=== PATIENT | female | born 1970 | race Caucasian/White ===

== ENCOUNTER 2017-01-15 12:00 | Outpatient (RCR) | payer OTHER, SELFPAY ==
--- NOTE | 2016-12-29 16:04 | HP.PTEVAL_ITS ---
Patient's Visit Information GORDO ABERNATHY is a 46 year old F referred to Physical Therapy by Devonte Nava with a diagnosis of LUMBAGO. Date of Evaluation: 12/29/16 Physical Therapist: Gabe Vizcaino PT, - Visit Plan Frequency: 2x /Week Duration: 4 Weeks Plan: DLS,LE FLEXABILITY,LE STRENGTHENING,MODALITIES NEEDED. PATIENT MULTIPLE COMORMIDITIES - Subjective Subjective: This 46 y/o female presents to physical therapy with lumbago .Patient has had lumbar pain several years. Patient has multiple comormidities blood clots in legs whic had surgery one. year ago. 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 Patient has been off work for about year for medically leave.Patient has had CVA x3 and multple TIA. Patient has nerve disease -freedman-freedman.Patient was recently hospitalized for suicide attempt per patient.Symmtrical -L-S region. Symptoms worse with lifting ,bending,housework tasks. Symptpoms better with rest. Patient sleeping okay at night.Couighing /sneezing (-). Denies parathesia/ tingling. VOCATION: [employer]. SOCIAL: - Pain Bilateral Back Pain Intensity (Out of 10): 0 Pain Intensity Range: 10 - Objective POSTURE: mild foward posture. PALPATION: unremarkable. NEURO: denies parathesia/tingling ,reflexes L3-4,L4-5,L5-S1 1/3. GAIT: normal mago reciprocal pattern..wears foot prothesis. FLEXABILITY: hams mod/severe tight, piriformis mod tight. SYMMTRIES: align. LUMBAR ROM: flexion mod loss, extension mod loss,side glides mod loss. MMT: quads/hams/hip 4-/5,ankle 4-/5 - Special Tests L/S Slump test left side: Negative L/S Slump test right side: Negative L/S Left Straight Leg Raise: Negative L/S Right Straight Leg Raise: Negative Lumbar Standing: Flexion - Mechanical Response: No effect Lumbar Standing: Flexion - Symptoms During Testing: No effect Lumbar Standing: Flexion - Symptoms After Testing: No effect Lumbar Standing: Extension - Mechanical Response: No effect Lumbar Standing: Extension - Symptoms During Testing: No effect - Goals Goal 1:: Independant with HEP. Goal Time Frame: 4-6 Weeks Goal 2:: Independant with posture/body mechanics. Goal Time Frame: 4-6 Weeks Goal 3:: Decrease lumbar pain by 50% or greater to improve function and job demands. Goal Time Frame: 4-6 Weeks Goal 4:: Patient increase lumbar ROM min/mod limited for function of recovery Goal Time Frame: 4-6 Weeks Goal 5:: Patient increase strength 4/5 for LE to improve function with job demands. Goal Time Frame: 4-6 Weeks Goal 6:: Patient improve ability improve ADL'S and job demands with min limiations with good endurance. Goal Time Frame: 4-6 Weeks - Rehabilitation Potential Physical Therapy Diagnosis: This patient has multiple comormidities to include CVA'S/TIA'S, DVT along with lumbar pain ,weakness,poor lumbar ROM, deconditioned for ADL'S and housework Rehabilitation Potential: Good - Anticipated Interventions Patient/Client Instruction: Educate patient on: Condition, Plan of Care For the Purpose of:: To decrease pain, To increase ROM, To improve muscle performance and motor function, To improve ability to perform ADL's, To increase tolerance to activity/condition/position, To improve performance and independence with ADL's, To improve ability of physical actions for home/ community/work/leisure, To improve health of tissue, To decrease soft tissue restriction, To increase flexibility/ROM, To improve endurance, To improve health and function, To improve ability to perform tasks related to life management Therapeutic Exercise to Include: Strength training, Agility training, Postural training, Flexibilty training, Dynamic Lumbar Stabilization For the Purpose of:: To decrease pain, To increase ROM, To improve muscle performance and motor function, To improve ability to perform ADL's, To increase tolerance to activity/condition/position, To improve performance and independence with ADL's, To improve ability of physical actions for home/ community/work/leisure, To improve health of tissue, To decrease soft tissue restriction, To increase flexibility/ROM, To improve endurance, To improve health and function, To improve ability to perform tasks related to life management IF ES: Yes Cryotherapy (ice pack, ice massage): Yes Thermo therapy (hot pack): Yes Ultrasound (thermal/non thermal): Yes For the Purpose of:: To decrease pain, To increase ROM, To improve nutrient delivery to tissue, To increase oxygenation perfusion, To decrease soft tissue restriction, To increase flexibility/ROM Thank you for the opportunity to evaluate your patient. For Medicare and Medicare HMO plans, please review the plan of care and approve it. It will need to be FAXED BACK to us at [phone] for Medicare purposes. Please let me know if there are questions or concerns regarding this plan of care. Physician Signature: Date:
--- NOTE | 2017-01-15 13:44 | HP.PTEVAL2_ITS ---
Patient's Visit Information GORDO ABERNATHY is a 46 year old F referred to Physical Therapy by Devonte Nava with a diagnosis of POSTERIORTIBIAL TENDONITIS LEFT FOOT. Date of Evaluation: 01/15/17 Physical Therapist: Gabe Vizcaino PT, - Visit Plan Frequency: 2x /Week Duration: 5WEEKS Plan: modalities,stetching G-S,STRENGTHENING ANKLE - Subjective Subjective: This patient presents to physical therapy with posteriortibila tendonitis left foot . Patient has had pain left medial arch posterior tibial tendon. Symptoms desecibed as ache constant . Symptoms worse with extended standing ,walking affects job demands and housework tasks. Denies parathesia/ tingling. Sleeps okay at night. Patient has multple complexity issues to include most recently amputation right metatarsels 2016.Seen Dr ,does trimming toenails ,and orthotics with diabetic shoes. Although ,wants new diabetic shoes. VOCATION: [employer]. SOCAIL: - Pain Left Foot Intensity: 7 Pain Intensity Range: 10 - Objective Objective: POSTURE: pes planus,calcaneal valgus. PALAPTION: medial arch. GAIT : anatlgic gait pes planus with calcaneal valgus. NEURO: inact ,diminished right foot. AROM: DF 5 degrees from 0,PF 60 degrees,IN 30 degrees,EV 5 degrees. MMT: anterior tibials,4/5,posterior tibials,perneous,G-S 4-/5. FLEXABLITY: calf mod tightness - Goals Goal 1:: Independant with HEP. Goal Time Frame: 4-6 Weeks Goal 2:: Decrease pain left ankle/foot by 50% or greter to improve function with walking Goal Time Frame: 4-6 Weeks Goal 3:: Patient to improve quality of gait pattern with less antalgic 70% of the time. Goal Time Frame: 4-6 Weeks Goal 4:: Patient increase strength of ankle 4/5 to improve gait and ADL'S Goal Time Frame: 4-6 Weeks Goal 5:: Patient improve function with ADL'S and job demandes with min limitations Goal Time Frame: 4-6 Weeks Goal 6:: Improve G-S to 0 degrees of DF to improve gait with maribel strike Goal Time Frame: 4-6 Weeks - Rehabilitation Potential Rehabilitation Potential: Good - Anticipated Interventions Patient/Client Instruction: Educate patient on: Condition, Plan of Care For the Purpose of:: To decrease pain, To increase ROM, To improve muscle performance and motor function, To increase tolerance to activity/condition/ position, To improve performance and independence with ADL's, To improve ability of physical actions for home/community/work/leisure, To improve gait and locomotor functions, To improve health of tissue, To decrease soft tissue restriction, To increase flexibility/ROM, To improve balance, To improve ability to perform tasks related to life management Therapeutic Exercise to Include: Strength training, Flexibilty training, Active ROM For the Purpose of:: To decrease pain, To improve muscle performance and motor function, To increase tolerance to activity/condition/position, To improve ability of physical actions for home/community/work/leisure, To improve health of tissue, To decrease soft tissue restriction, To increase flexibility/ROM, To improve ability to perform tasks related to life management IF ES: Yes Cryotherapy (ice pack, ice massage): Yes Thermo therapy (hot pack): Yes Ultrasound (thermal/non thermal): Yes For the Purpose of:: To decrease pain, To decrease swelling/inflammation, To improve nutrient delivery to tissue, To increase oxygenation perfusion, To improve health of tissue, To decrease soft tissue restriction, To improve ability to perform tasks related to life management Thank you for the opportunity to evaluate your patient. For Medicare and Medicare HMO plans, please review the plan of care and approve it. It will need to be FAXED BACK to us at [phone] for Medicare purposes. Please let me know if there are questions or concerns regarding this plan of care. Physician Signature: Date:
--- NOTE | 2017-03-08 15:17 | HP.PTDCNRP_ITS ---
HP - Discharge Summary (1) - Patient Information GORDO ABERNATHY was seen in my office for initial evaluation on 12/29/16. The following Plan of Care was established for this patient: Initial Frequency: 2x /Week Initial Duration: 4 Weeks - Anticipated Interventions Patient/Client Instruction: Educate patient on: Condition, Plan of Care For the Purpose of:: To decrease pain, To increase ROM, To improve muscle performance and motor function, To improve ability to perform ADL's, To increase tolerance to activity/condition/position, To improve performance and independence with ADL's, To improve ability of physical actions for home/ community/work/leisure, To improve health of tissue, To decrease soft tissue restriction, To increase flexibility/ROM, To improve endurance, To improve health and function, To improve ability to perform tasks related to life management Therapeutic Exercise to Include: Strength training, Agility training, Postural training, Flexibilty training, Dynamic Lumbar Stabilization For the Purpose of:: To decrease pain, To increase ROM, To improve muscle performance and motor function, To improve ability to perform ADL's, To increase tolerance to activity/condition/position, To improve performance and independence with ADL's, To improve ability of physical actions for home/ community/work/leisure, To improve health of tissue, To decrease soft tissue restriction, To increase flexibility/ROM, To improve endurance, To improve health and function, To improve ability to perform tasks related to life management IF ES: Yes Cryotherapy (ice pack, ice massage): Yes Thermo therapy (hot pack): Yes Ultrasound (thermal/non thermal): Yes For the Purpose of:: To decrease pain, To increase ROM, To improve nutrient delivery to tissue, To increase oxygenation perfusion, To decrease soft tissue restriction, To increase flexibility/ROM This patient was last seen in our office . Pertinent comments regarding their Physical therapy will appear below: Patient was seen for PT for lumbago focusing on posture and DLS ,thus is d/c. At this point I will be discontinuing this patient from physical therapy. I would be happy to see this patient again in the future if found appropriate by the physician. Thank you! Gabe Vizcaino, PT,
--- NOTE | 2017-03-08 15:17 | HP.PTNR(2)_ITS ---
HP - Discharge Summary (2) - Patient Information GORDO ABERNATHY was seen in my office for initial evaluation on 01/15/17. The following Plan of Care was established for this patient: Initial Frequency: 2x /Week Initial Duration: 5WEEKS Plan from Re-Evaluation: modalities,stetching G-S,STRENGTHENING ANKLE - Anticipated Interventions Patient/Client Instruction: Educate patient on: Condition, Plan of Care For the Purpose of:: To decrease pain, To increase ROM, To improve muscle performance and motor function, To increase tolerance to activity/condition/ position, To improve performance and independence with ADL's, To improve ability of physical actions for home/community/work/leisure, To improve gait and locomotor functions, To improve health of tissue, To decrease soft tissue restriction, To increase flexibility/ROM, To improve balance, To improve ability to perform tasks related to life management Therapeutic Exercise to Include: Strength training, Flexibilty training, Active ROM For the Purpose of:: To decrease pain, To improve muscle performance and motor function, To increase tolerance to activity/condition/position, To improve ability of physical actions for home/community/work/leisure, To improve health of tissue, To decrease soft tissue restriction, To increase flexibility/ROM, To improve ability to perform tasks related to life management IF ES: Yes Cryotherapy (ice pack, ice massage): Yes Thermo therapy (hot pack): Yes Ultrasound (thermal/non thermal): Yes For the Purpose of:: To decrease pain, To decrease swelling/inflammation, To improve nutrient delivery to tissue, To increase oxygenation perfusion, To improve health of tissue, To decrease soft tissue restriction, To improve ability to perform tasks related to life management This patient was last seen in our office . Pertinent comments regarding their Physical therapy will appear below: Patient was seen for PT intially for posterior tibials tendon for Treatment , but is d/c. At this point I will be discontinuing this patient from physical therapy. I would be happy to see this patient again in the future if found appropriate by the physician. Thank you! Gabe Vizcaino, PT,
== END 2017-01-15 19:00 | disposition home or self-care (01) ==
LOC: PT 12:00
PROVIDERS: Family Provider Family Medicine; PCP Family Medicine; Visit Provider Family Medicine
DX: M54.5 Low back pain (principal); M76.822 Posterior tibial tendinitis, left leg
CPT/HCPCS: 97035; 97110; 97162; 97163

== ENCOUNTER 2017-06-02 08:22 | Emergency (ER) | payer OTHER, SELFPAY ==
[2017-06-02 08:23] VITALS: BP 185/117; PULSE 112; RESP 18; TEMP 36.7; O2SAT 98; BMI 28.7
--- NOTE | 2017-06-02 08:42 | ED.VISSUMM ---
- ER Visit Summary Date of Service: 06/02/17 Chief Complaint: Nausea and vomiting History of Present Illness: The patient is a 47 F 3 of insulin-dependent diabetes, prior multiple strokes, anemia, heparin-induced thrombocytopenia and moyamoya patient complaining of nausea and vomiting since Wednesday. Unable keep fluids down. Was seen in primary care physician's office today and sent to the ER for evaluation. She denies any hematemesis. She is anticoagulated on Coumadin. Physical Examination: Well appearing middle-aged female. Vital signs are stable. Her blood pressure is currently elevated 25 117. She is tachycardic. H EENT exam atraumatic. Pupils round reactive light. Dry mucous membranes. Neck nontender no meningismus. No lymphadenopathy. Lungs clear to auscultation bilaterally. Heart tachycardic rate about 110 no murmur. Chest wall nontender. Abdomen soft, nontender nondistended no organomegaly or masses. Normal bowel sounds no peritoneal signs. She is moving all 4 extremities. She has no motor loss. No edema. Toes on her right foot have been amputated in the past. Neurologically she is awake and alert without focal motor deficits. Test Results: CBC normal. BMP unremarkable other than glucose 311. Capoten. PT/INR subtherapeutic with an INR of 1.6. CT of the brain showed no acute pathology. Status post bilateral craniotomies and chronic changes. Emergency Department Course and Treatment: Patient treated with IV fluids and IV Zofran. Treatment Plan: Repeat exam patient is doing better at 1534. Exam is unchanged. Disposition: Discharge Impression: Acute nausea and vomiting Acute dehydration Cephalgia of uncertain etiology History of anticoagulation by Coumadin subtherapeutic History of insulin-dependent diabetes This note was generated with [employer] dictation software. It may contain incorrect words, spelling, and punctuation that were not noted in review of the chart prior to signing ED Disposition - Plan for ED Patient: Chief Complaint: Nausea/Vomiting Referrals: Naveen Nava MD [Primary Care Provider] -
[2017-06-02 08:53] LABS: Absolute Lymphocyte Count 1.65 X10^3/ul (0.83-4.51); Absolute Neutrophil Count 6.6 X10^3/uL (2.0-7.7); Basophil# 0.04 X10^3/uL; Basophil% 0.4 % (0-1); Eosinophil# 0.11 X10^3/uL; Eosinophils% 1.2 % (0-5); Hematocrit 42.2 % (37-47); Hemoglobin 12.9 g/dl (12.0-15.0); Lymphocyte # 1.65 X10^3/ul (4.0); Lymphocyte % 17.7 % (19-41); Mean Corp Hgb Conc 30.6 g/gl (32-36); Mean Corpuscular Volume 81.8 fL (81-99); Mean Platelet Vol. 9.4 fl (6.2-12.0); Monocyte# 0.89 X10^3/uL; Monocyte% 9.5 % (0-10); Neutrophil # 6.63 X10^3/uL (2.7-7.7); Neutrophil % 71.1 % (47-70); POSITIVE COUNT NO; POSITIVE DIFFERENTIAL NO; POSITIVE MORPHOLOGY NO; Platelet Count 458 K/mm3 (150-450); RBC Distribution Width CV 16.9 % (11.6-14.6); RBC Distribution Width SD 50.5 fl (35.1-43.9); Red Blood Count 5.16 M/mm3 (4.2-5.4); White Blood Count 9.3 K/mm3 (4.4-11.0)
[2017-06-02 08:58] LABS: International Normalized Ratio 1.6; Prothrombin Time (Protime)PT. 18.8 SECONDS (11.7-14.9)
[2017-06-02 09:09] LABS: Anion Gap 10 (5-15); BUN 9 mg/dL (7-18); BUN/Creat Ratio 8.8 RATIO (10-20); Calcium,Total 9.4 mg/dL (8.5-10.1); Chloride 100 mmol/L (98-107); Creatinine, Serum 1.02 mg/dL (0.55-1.02); EST Glomerular Filtration Rate 62 mL/min (>60); Est Glom Filt Rate - Afr Amer 75 mL/min (>60); Estimated Creatinine Clearance 59.51 ml/min; Glucose 311 mg/dL (74-106); Potassium 3.5 mmol/L (3.5-5.1); Sodium Level 134 mmol/L (136-145)
[2017-06-02] MEDS: Ondansetron 4 MG/2 ML Vial IV (09:09)
[2017-06-02] MEDS: 0.9% Normal Saline 1,000 ML 1000 ML IV (09:09)
[2017-06-02 10:54] VITALS: BP 174/110; PULSE 104; RESP 18; O2SAT 98
--- NOTE | 2017-06-02 11:53 | CT_ITS ---
STUDY: CT BRAIN WITHOUT CONTRAST REASON FOR EXAM: Female, 47 years old. Headache, nausea and vomiting x3 days, on Coumadin. RADIATION DOSAGE (If Supplied By Facility): CTDIvol = ( 44.99 ) mGy, DLP = ( 796.11 ) mGycm TECHNIQUE: Transaxial CT imaging of the brain was performed without administration of intravenous contrast material. Individualized dose optimization techniques were used for this CT. COMPARISON: None. FINDINGS: Normal soft tissue structures. Patient is status post bilateral frontotemporal craniotomies. There is a left temporal subinsular, crescentic shaped chronic lacunar infarct. There is a small right periventricular anterior lacunar infarct, chronic. There is no mass or mass effect. Normal size ventricles and extra-axial spaces for the patient's age. There is a region of left frontal, periventricular encephalomalacia. Normal basal ganglia and thalami. Normal brainstem. Normal cerebellum. There is no intracranial hemorrhage. There is no large vessel territory ischemia or edema. Normal visualized paranasal sinuses. CT/Brain/Head without Contrast IMPRESSION: No CT evident acute intracranial pathology. Status post bilateral frontotemporal craniotomies. Chronic lacunar infarcts as discussed above. Left frontal periventricular encephalomalacia. Electronically Signed: Cesar Varghese MD at 13:25 EDT , Service support ,
[2017-06-02] MEDS: proMETHazine 25 MG/ML Syringe 12.5 MG IV (12:12)
[2017-06-02] MEDS: morphine 8 MG/ML Syringe 6 MG IV (12:13)
[2017-06-02 12:18] VITALS: BP 170/90; PULSE 103; RESP 17; O2SAT 98
[2017-06-02 14:07] VITALS: PULSE 102; RESP 17; O2SAT 97
[2017-06-02] MEDS: Morphine 4 MG/ML Syringe IV (15:40)
[2017-06-02 15:45] VITALS: BP 139/90; PULSE 104; RESP 18; O2SAT 94
--- NOTE | 2017-06-02 15:46 | ED.DEP ---
ED Disposition - Plan for ED Patient: Disposition: Home or Assisted Living Chief Complaint: Nausea/Vomiting Instructions: ED Nausea Vomiting Prescriptions: Ondansetron [Zofran Odt] 4 mg PO Q4H PRN PRN #7 tab.rapdis PRN Reason: Nausea Referrals: Naveen Nava MD [Primary Care Provider] - 3-5 Days if not improving Additional Instructions: Zofran as needed for nausea. Call and follow-up with your primary care physician.
== END 2017-06-02 16:03 | disposition home or self-care (01) ==
PROVIDERS: Emergency Provider Emergency Medicine; Family Provider Family Medicine; PCP Family Medicine
DX: R51 Headache (principal); R11.2 Nausea with vomiting, unspecified; E86.0 Dehydration; E11.9 Type 2 diabetes mellitus without complications; D64.9 Anemia, unspecified; D69.59 Other secondary thrombocytopenia; T45.515A Adverse effect of anticoagulants, initial encounter; I67.5 Moyamoya disease; Z86.73 Personal history of transient ischemic attack (TIA), and cerebral infarction without residual deficits; Z79.4 Long term (current) use of insulin; Z79.01 Long term (current) use of anticoagulants
CPT/HCPCS: 70450; 80048; 85025; 85610; 96361; 96374; 96375; 96376; 99283; J7030; J7050; A4216

== ENCOUNTER → 2017-08-05 10:25 | Outpatient (CLI) | payer OTHER, SELFPAY ==
[2017-08-05 12:17] LABS: Anion Gap 6 (5-15); BUN 14 mg/dL (7-18); BUN/Creat Ratio 14.6 RATIO (10-20); Calcium,Total 8.7 mg/dL (8.5-10.1); Chloride 104 mmol/L (98-107); Creatinine, Serum 0.96 mg/dL (0.55-1.02); EST Glomerular Filtration Rate 66 mL/min (>60); Est Glom Filt Rate - Afr Amer 80 mL/min (>60); Follicle Stimulating Hormone 2.9 mIU/mL; Glucose 222 mg/dL (74-106); Luteinizing Hormone 1.4 mIU/mL; Potassium 4.2 mmol/L (3.5-5.1); Sodium Level 138 mmol/L (136-145); Thyroid Stim Hormone (TSH) 1.71 uIU/mL (0.358-3.74)
[2017-08-06 16:10] LABS: Endomysial Antibody IgA Negative (Negative)
[2017-08-07 07:53] LABS: Immunoglobulin A 517 mg/dL (87-352); t-Transglutaminase IgA <2 U/mL (0-3)
== END ==
PROVIDERS: Family Provider Family Medicine; PCP Family Medicine; Visit Provider Family Medicine
DX: E11.9 Type 2 diabetes mellitus without complications (principal); R14.3 Flatulence; N95.9 Unspecified menopausal and perimenopausal disorder; I82.409 Acute embolism and thrombosis of unspecified deep veins of unspecified lower extremity
CPT/HCPCS: 36415; 80048; 82784; 83001; 83002; 83516; 84443; 86255

== ENCOUNTER 2017-09-24 10:59 | Outpatient (RCR) | payer OTHER, SELFPAY ==
--- NOTE | 2017-09-24 11:50 | HP.PTEVAL ---
Patient's Visit Information GORDO ABERNATHY is a 47 year old F referred to Physical Therapy by Devonte Nava with a diagnosis of Low Back Pain, DDD. Date of Evaluation: 09/24/17 Physical Therapist: Candie Oconnell - Visit Plan Frequency: 2x /Week Duration: 4 Weeks Plan: Aquatic therapy- focus on core s/s with functional mobility- educate on lifting mechanics - Subjective Subjective: Patient reports that she has back problems and both legs are bothering her. She had blockages in her legs x 3 they put in stents and then took them out. Developed LASHONDA- blood transfusion and developed a clot in the foot. Sep [id number] they amputated the right metatarsals- she does have a prosthesis. She has since gotten a job at [employer]- was told by the vascular surgeon to move more but she just hurts. 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 Pain is located along the low back- no radiating pain. Describes the pain as dull and achy. Worst: 6/10 Agg: laundry, bending down, vaccuum. Eases: sitting Best: 0/10. reports tender to palpation. No n/t in the LE- no loss or change of bowel or bladder. Sleep: not disturbed. No x-rays or MRI recently. Had an x-ray a long time ago that showed OA. Lifts up to #5 at work- does not feel comfortable carrying somthing down the stairs due to her prosthesis. Works almost 40 hours a week. PMHX: amputation, LASHONDA, blockages in her LE, 3-4 CVA's, HTN, DM, high cholesterol, Moia Moia. Meds: lyrica, lisnopril, metroprolo, cumbalta, busbar, astrostatin, ambien PRN. coumadin - Objective Posture: sitting: FH, RS- can correct with verbal cueing but does not maintain standing: FH, RS. Gait: unsteady- pt has poor toe off on the right secondary to amputation. HR/TR: able on the left- TR increases back pain. SLS: 5 seconds on the left and 2 seconds on the right- both increase back pain. ROM: WFL in all planes of lumbar and LE- no reports of pain with movement. Palpation: tender on spinal processess from L2-sacrum but no reports of pain with Palpation to paraspinals. Pain along both gluts to the greater troch and down the hamstrings/quads. Patient reports that her legs are always tender. Strength: Ankle: 4+/5, Knee: 4+/5 Hip: 4/5 Core: fair minus- reports of pain with all strength testing in LE. Sensation: WNL. Special Test: Durals signs: positive bilaterally, Slump: positive bilaterally, SLR: positive bilaterally. Flex: HS: severe, Gastroc: severe - Goals Goal 1:: Patient will be I with HEP and progression Goal Time Frame: 4-6 Weeks Goal 2:: Patient will maintian proper posture in sitting throughout treatment session to demo increased core s/s Goal Time Frame: 4-6 Weeks Goal 3:: Patient will lift a box with proper lifting techniques from floor to waist Goal Time Frame: 4-6 Weeks Goal 4:: Patient will report 0/10 back pain for 1 week Goal Time Frame: 4-6 Weeks - Rehabilitation Potential Physical Therapy Diagnosis: Patient presents with hypomobility- she has decreased strength, core s/s, and muscular endurance leading to poor posture and increased back pain. Rehabilitation Potential: Fair - Anticipated Interventions Patient/Client Instruction: Educate patient on: Benefits of Fitness Program Therapeutic Exercise to Include: Strength training, Endurance training, Balance training, Agility training, Body mechanics, Postural training, Flexibilty training, In an aquatic setting For the Purpose of:: To improve muscle performance and motor function Thank you for the opportunity to evaluate your patient. For Medicare and Medicare HMO plans, please review the plan of care and approve it. It will need to be FAXED BACK to us at [phone] for Medicare purposes. Please let me know if there are questions or concerns regarding this plan of care. Physician Signature: Date:
--- NOTE | 2017-10-29 11:11 | HP.PT.NRP ---
HP - Discharge Summary (1) - Patient Information GORDO ABERNATHY was seen in my office for initial evaluation on 09/24/17. The following Plan of Care was established for this patient: Initial Frequency: 2x /Week Initial Duration: 4 Weeks - Anticipated Interventions Patient/Client Instruction: Educate patient on: Benefits of Fitness Program Therapeutic Exercise to Include: Strength training, Endurance training, Balance training, Agility training, Body mechanics, Postural training, Flexibilty training, In an aquatic setting For the Purpose of:: To improve muscle performance and motor function This patient was last seen in our office . Pertinent comments regarding their Physical therapy will appear below: Patient has cancelled or not atteneded all of her physical therapy visits. At this time she is appropriate for d.c and return to MD for further evaluation as needed. At this point I will be discontinuing this patient from physical therapy. I would be happy to see this patient again in the future if found appropriate by the physician. Thank you! Candie Oconnell
== END 2017-09-24 19:00 | disposition home or self-care (01) ==
LOC: PT 10:59
PROVIDERS: Family Provider Family Medicine; PCP Family Medicine; Visit Provider Family Medicine
DX: M51.36 Other intervertebral disc degeneration, lumbar region (principal)
CPT/HCPCS: 97162

== ENCOUNTER 2018-05-04 15:18 | Emergency (ER) | payer OTHER, SELFPAY ==
[2018-05-04 15:19] VITALS: BP 163/97; PULSE 84; RESP 16; TEMP 36.8; O2SAT 95; BMI 30.7
--- NOTE | 2018-05-04 15:31 | CT_ITS ---
STUDY: CT BRAIN WITHOUT CONTRAST REASON FOR EXAM: Female, 47 years old. Headache RADIATION DOSAGE (If Supplied By Facility): CTDIvol = ( 60.81 ) mGy, DLP = ( 1044.28 ) mGycm TECHNIQUE: Transaxial CT imaging of the brain was performed without administration of intravenous contrast material. Individualized dose optimization techniques were used for this CT. COMPARISON: 06/02/2017 FINDINGS: There are bilateral craniotomy defects. Stable left temporal, subinsular encephalomalacia likely from prior old infarct or trauma.. There is stable right frontal lobe periventricular likely old ischemic changes. There is stable linear hyperdensity along the dural surface adjacent to the left craniotomy defect likely postsurgical mesh type material or dural calcification unchanged from prior study. Normal brainstem. Normal cerebellum. There is no intracranial hemorrhage. There are no findings of an acute ischemic infarction. There is mild mucosal thickening within the paranasal sinuses. CT/Brain/Head without Contrast IMPRESSION: Stable exam. Postsurgical changes, stable old ischemia and/or old trauma as above. Electronically Signed: Rajat Mena, at 16:31 EDT Tel , Service support ,
--- NOTE | 2018-05-04 15:32 | EKG12_ITS ---
Test Reason : NEURO Blood Pressure : / mmHG Vent. Rate : 078 BPM Atrial Rate : 078 BPM P-R Int : 164 ms QRS Dur : 082 ms QT Int : 384 ms P-R-T Axes : 034 010 024 degrees QTc Int : 437 ms Normal sinus rhythm Possible Left atrial enlargement Borderline ECG Confirmed by MARAL CHOE, DOMO ([id number]), editor newspaper ALDEN NIETO ([id number]) on 05/05/2018 1:13:08 PM Referred By: DIANA Confirmed By:DOMO ALICIA MD
--- NOTE | 2018-05-04 15:37 | ED.DCSUM_ITS ---
- ER Visit Summary Date of Service: 05/04/18 Chief Complaint: Unsteadiness and stumbling History of Present Illness: The patient is a 47 F presents with unsteadiness on her feet and stumbling that has been getting worse for the past 4 days. Patient states today she noted she had difficulty writing when she was at the bank trying to fill out a deposit slip. Patient states she was writing some of her numbers backwards. Patient states she has had a headache that has been intermittent over the past few days. Patient states she has been forgetting things and having some mild confusion. Physical Examination: Vital signs are stable. Patient is afebrile. Patient is in no acute distress. Pupils are equal, round, and reactive to light bilateral. Tympanic membranes are clear. Oral mucosa is pink and somewhat dry. Oropharynx is clear. Tongue is midline. Cranial nerves II through XII are intact. Strength is 5/5 bilaterally upper and lower extremities. There are no sensory deficits noted. Heel to sparrow and finger to nose to finger was intact. Heart was regular rate and rhythm. Lungs are clear and equal bilaterally. Abdomen is soft and nontender. The remaining physical exam is within normal limits. Test Results: Scan of the brain was obtained. There is no acute abnormality noted. EKG showed normal sinus rhythm with a rate of 78. There are no acute ST or T wave changes. CBC and basic metabolic profile were obtained and were within normal limits with the exception of a slightly elevated glucose of 265. Urinalysis shows a glucose of 1000 but does not show any evidence of urinary tract infection. INR was 1.9. Emergency Department Course and Treatment: Patient was able to ambulate. Patient states she has a walker and cane at home. Patient was instructed to follow-up with her primary care physician in 5-7 days. Patient understood and was agreeable with the plan. All questions were answered. Disposition: Discharge home Impression: Unsteady gait This note was generated with [employer] dictation software. It may contain incorrect words, spelling, and punctuation that were not noted in review of the chart prior to signing ED Disposition - Plan for ED Patient: Disposition: Home or Assisted Living Diagnosis: Unsteady gait Instructions: ED Fall Dizziness Weakn Balance Referrals: Naveen Nava MD [Primary Care Provider] - 5-7 Days
[2018-05-04 15:58] LABS: International Normalized Ratio 1.9; Prothrombin Time (Protime)PT. 21.8 SECONDS (11.7-14.9)
[2018-05-04 16:03] LABS: Absolute Lymphocyte Count 2.04 X10^3/ul (0.83-4.51); Absolute Neutrophil Count 4.3 X10^3/uL (2.0-7.7); Basophil# 0.06 X10^3/uL; Basophil% 0.8 % (0-1); Eosinophil# 0.09 X10^3/uL; Eosinophils% 1.3 % (0-5); Hematocrit 38.9 % (37-47); Hemoglobin 12.2 g/dl (12.0-15.0); Lymphocyte # 2.04 X10^3/ul (4.0); Lymphocyte % 28.7 % (19-41); Mean Corp Hgb Conc 31.4 g/gl (32-36); Mean Corpuscular Hgb 26.8 pg (27.0-32.0); Mean Corpuscular Volume 85.3 fL (81-99); Mean Platelet Vol. 10.9 fl (6.2-12.0); Monocyte% 8.4 % (0-10); Neutrophil # 4.31 X10^3/uL (2.7-7.7); Neutrophil % 60.7 % (47-70); Platelet Count 339 K/mm3 (150-450); RBC Distribution Width CV 15.4 % (11.6-14.6); RBC Distribution Width SD 47.5 fl (35.1-43.9); Red Blood Count 4.56 M/mm3 (4.2-5.4); White Blood Count 7.1 K/mm3 (4.4-11.0)
[2018-05-04 16:05] LABS: POSITIVE COUNT NO; POSITIVE DIFFERENTIAL NO; POSITIVE MORPHOLOGY NO
[2018-05-04 16:06] LABS: Anion Gap 6 (5-15); BUN 9 mg/dL (7-18); BUN/Creat Ratio 9.4 RATIO (10-20); Calcium,Total 8.3 mg/dL (8.5-10.1); Chloride 102 mmol/L (98-107); Creatinine, Serum 0.96 mg/dL (0.55-1.02); EST Glomerular Filtration Rate 67 mL/min (>60); Est Glom Filt Rate - Afr Amer 80 mL/min (>60); Estimated Creatinine Clearance 63.23 ml/min; Glucose 265 mg/dL (74-106); Sodium Level 134 mmol/L (136-145)
--- NOTE | 2018-05-04 16:30 | NURSING ---
HAS A LW AND POA
--- NOTE | 2018-05-04 16:45 | CM.ED ---
Social Work Assessment Referral Date: 05/04/18 Date of Assessment: 05/04/18 Informant: SHIRAZ SEAMAN Reason for Consult: SAFETY CONCERNS Information obtained from: PATIENT AND PATIENT'S , [place] [phone] Living Arrangements: PATIENT LIVES HOME WITH AND 19 YEAR OLD SON IN A 2 STORY HOME. 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 Supports: PATIENT STATES GOOD SUPPORT FROM Social/Family Stressors: PATIENT REPORTS SAFETY CONCERNS IN THE HOME D/T 19 YEAR OLD SON. PATIENT STATES SPOKE WITH EVERY WOMAN'S HOUSE THIS DAY AND DENIES ANY FURTHER NEEDS FROM THIS WORKER. Mental Health History: PATIENT AND REPORTS PATIENT WITH HX OF ANXIETY AND DEPRESSION AND IS PRESCRIBED MEDICATION. Substance Abuse History: PATIENT DENIES ANY SUBSTANCE ABUSE HX. Interventions: SOCIAL SERVICE ASSESSMENT Assessment: PATIENT IS A 47 Y/O FEMALE WHO PRESENTS TO ED D/T UNSTEADY GAIT. PATIENT WITH HX OF OCAMPO OCAMPO, AND STROKES. PATIENT LIVES HOME WITH AND SON IN A 2 STORY HOME. PATIENT DOES NOT USE ASSISTIVE DEVICE, BUT HAS A WALKER AND CANE IF NEEDED. PATIENT ADMITS TO HX OF ANXIETY AND DEPRESSION AND STATES IS TREATED WITH MEDICATION. PATIENT DENIES ANY HX OF SUBSTANCE ABUSE. PATIENT FOLLOWS WITH DR. RAINES FOR PRIMARY CARE. EXPLAINED THIS WORKER'S ROLE AND REASON FOR REFERRAL. PATIENT HAD VOICED SAFETY CONCERNS IN THE HOME D/T SON. PATIENT DID NOT ELABORATE ON CONCERNS WITH THIS WORKER AND STATED SHE HAS BEEN IN CONTACT WITH EVERY WOMAN'S HOUSE. IS AWARE OF CONCERNS WITH SON. PATIENT DENIES ANY NEEDS FROM THIS WORKER. D/C PLAN IS TO RETURN HOME BEFORE. THIS WORKER TO REMAIN AVAILABLE. SHIRAZ SEAMAN UPDATED ON THIS WORKER'S ASSESSMENT. PLAN: HOME WITH BEFORE
[2018-05-04 16:54] LABS: Bacteria 0 SEEN /hpf (None Seen); Mucous, Urine 0 SEEN /hpf (<or=2+); Red Blood Cells-Urine 0 SEEN /hpf (0-5); White Blood Cells 0 SEEN /hpf (0-5)
[2018-05-04] MEDS: Acetaminophen 500 MG Tablet 1000 MG PO (16:57)
[2018-05-04 16:58] VITALS: BP 125/88; PULSE 84; RESP 16; O2SAT 98
[2018-05-04 17:03] LABS: Color, Urine Yellow (Yellow); Glucose, Dipstick 1000 mg/dl (Normal); Ketone-Dipstick 5 mg/dl (Negative); Leukocyte Esterase-Dipstick Negative /ul (Negative); Nitrite-Dipstick Negative (Negative); Occult Blood-Urine Negative /ul (Negative); Protein-Dipstick Negative (Negative); Urine Bilirubin Dipstick Negative (Negative); Urine Clarity Clear (Clear); Urine Urobilinogen Normal (Normal)
[2018-05-04 17:26] LABS: Squamous Epithelial Cells - UA 0-5 SEEN /hpf (5-10)
[2018-05-04 18:15] VITALS: BP 137/90; PULSE 81; RESP 17; O2SAT 98
[2018-05-04 19:10] VITALS: BP 141/97; PULSE 82; RESP 16; O2SAT 95
== END 2018-05-04 19:16 | disposition home or self-care (01) ==
PROVIDERS: Emergency Provider Emergency Medicine; Family Provider Family Medicine; PCP Family Medicine
DX: R26.81 Unsteadiness on feet (principal); E11.9 Type 2 diabetes mellitus without complications; Z86.73 Personal history of transient ischemic attack (TIA), and cerebral infarction without residual deficits
CPT/HCPCS: 70450; 80048; 81001; 85025; 85610; 93005; 99285; A4216

== ENCOUNTER → 2018-11-21 | Outpatient (CLI) | payer OTHER, SELFPAY ==
[2018-11-21 12:24] LABS: International Normalized Ratio 1.7; Prothrombin Time (Protime)PT. 19.7 SECONDS (11.7-14.9)
[2018-11-21 12:35] LABS: Hematocrit 41.6 % (37-47); Hemoglobin 12.9 g/dL (12.0-15.0); Mean Corpuscular Hgb 28.1 pg (27.0-32.0); Mean Corpuscular Volume 90.6 fL (81-99); Platelet Count 298 K/mm3 (150-450); RBC Distribution Width CV 14.3 % (11.6-14.6); RBC Distribution Width SD 47.5 fl (35.1-43.9); Red Blood Count 4.59 M/mm3 (4.2-5.4); White Blood Count 8.1 K/mm3 (4.4-11.0)
[2018-11-21 12:46] LABS: ALB/GLOB Ratio 0.7 RATIO (0.9-2.4); AST(SGOT) 16 U/L (15-37); Alanine Aminotransfer ALT/SGPT 15 U/L (13-56); Alkaline Phosphatase 134 U/L (45-117); Anion Gap 7 (5-15); BUN 13 mg/dL (7-18); BUN/Creat Ratio 14.6 RATIO (10-20); Calcium,Total 8.8 mg/dL (8.5-10.1); Chloride 102 mmol/L (98-107); Cholesterol 206 mg/dL (200); Creatinine, Serum 0.89 mg/dL (0.55-1.02); EST Glomerular Filtration Rate 72 mL/min (>60); Est Glom Filt Rate - Afr Amer 87 mL/min (>60); Globulin 4.2 g/dL (2.2-4.2); Glucose 208 mg/dL (74-106); High Density Lipoprotein 61 mg/dL; Potassium 4.6 mmol/L (3.5-5.1); Protein, Total 7.2 g/dL (6.4-8.2); Sodium Level 136 mmol/L (136-145); Thyroid Stim Hormone (TSH) 2.08 uIU/mL (0.358-3.74); Triglycerides 252 mg/dL; Very Low Density Lipoprotein 50 mg/dL (5-40)
[2018-11-24 12:08] LABS: Beef <0.10 kU/L (Class 0); Corn <0.10 kU/L (Class 0); Egg, Whole <0.10 kU/L (Class 0); Milk (Cow) <0.10 kU/L (Class 0); Peanut <0.10 kU/L (Class 0); Pork <0.10 kU/L (Class 0); Soybean <0.10 kU/L (Class 0); Wheat <0.10 kU/L (Class 0)
[2018-11-24 16:56] LABS: Chocolate <0.10 kU/L (Class 0)
== END | disposition home or self-care (01) ==
LOC: MFPLAB 09:57
PROVIDERS: Family Provider Family Medicine; PCP Family Medicine; Visit Provider Family Medicine
DX: E11.65 Type 2 diabetes mellitus with hyperglycemia (principal); I82.409 Acute embolism and thrombosis of unspecified deep veins of unspecified lower extremity; I67.5 Moyamoya disease; R14.3 Flatulence
CPT/HCPCS: 36415; 80053; 80061; 84443; 85027; 85610; 86003; 86005

== ENCOUNTER → 2019-06-29 11:45 | Outpatient (CLI) | payer OTHER, SELFPAY ==
[2019-06-29 15:55] LABS: Ferritin 14 ng/mL (8-252); Iron 62 ug/dL (50-170)
[2019-06-29 16:47] LABS: Vitamin B12 328 pg/mL (211-911)
[2019-07-04 14:29] LABS: Cholesterol 207 mg/dL (200); High Density Lipoprotein 57 mg/dL; Thyroid Stim Hormone (TSH) 1.52 uIU/mL (0.358-3.74); Triglycerides 114 mg/dL; Very Low Density Lipoprotein 23 mg/dL (5-40)
== END ==
PROVIDERS: PCP Family Medicine; Referring Provider Family Medicine; Visit Provider Family Medicine
DX: D50.9 Iron deficiency anemia, unspecified (principal); E55.9 Vitamin D deficiency, unspecified; E11.51 Type 2 diabetes mellitus with diabetic peripheral angiopathy without gangrene; E11.65 Type 2 diabetes mellitus with hyperglycemia
CPT/HCPCS: 36415; 80061; 82306; 82607; 82728; 83540; 84443

== ENCOUNTER → 2019-07-11 | Outpatient (CLI) | payer OTHER, SELFPAY ==
--- NOTE | 2019-07-11 15:05 | CT_ITS ---
STUDY: CT BRAIN WITHOUT CONTRAST REASON FOR EXAM: Female, 49 years old. PT STATED HX OF MULTIPLE BRAIN SX, HX MOYAMOYA RADIATION DOSAGE (If Supplied By Facility): CTDIvol = ( 44.99 ) mGy, DLP = ( 779.24 ) mGycm TECHNIQUE: Transaxial CT imaging of the brain was performed without administration of intravenous contrast material. Individualized dose optimization techniques were used for this CT. COMPARISON: Comparison is made with prior study dated May 04, 2018. FINDINGS: Normal soft tissue structures. Once again, there is evidence of prior bilateral craniotomy defects. Normal size ventricles and extra-axial spaces for the patient''s age. Stable focal areas of encephalomalacia in the right frontal lobe as well as in the left temporal and subinsular cortex. There is also evidence of decreased attenuation in the superior aspect of the left frontal lobe. There has been essentially no change. Stable linear hyperdensity seen adjacent to the left craniotomy defect most likely represent a postoperative mesh material. Normal basal ganglia and thalami. Normal brainstem. Normal cerebellum. There is no intracranial hemorrhage. There are no findings of an acute ischemic infarction. Normal visualized paranasal sinuses. CT/Brain/Head without Contrast IMPRESSION: Stable examination. No acute abnormality is seen. Electronically Signed: Ki Amaro, at 15:24 EDT , Service support ,
--- NOTE | 2019-07-11 15:17 | CDU_ITS ---
Reason For Study: moyamoya Rt. Velocities/BP Lt. Velocities/BP Prox CCA 61.7/27.8 cm/sec. Prox CCA 69.5/18.6 cm/sec. Mid CCA 81.2/27.8 cm/sec. Mid CCA 56.5/17.3 cm/sec. Dist CCA 72.1/26.5 cm/sec. Dist CCA 68.2/22.6 cm/sec. Prox ICA 52.6/26.5 cm/sec. Prox ICA 39.5/12.1 cm/sec. Mid ICA 82.6/39.5 cm/sec. Mid ICA 34.4/15.7 cm/sec. Dist ICA 73.4/35.6 cm/sec. Dist ICA 63.0/30.0 cm/sec. Rt. ICA/CCA = 1.0. Lt. ICA/CCA = 1.1. Prox ECA 112.5/23.9 cm/sec. Prox ECA 87.8/14.7 cm/sec. Rt. Vert. 38.2/13.4 cm/sec. Lt. Vert. 47.6/20.1 cm/sec. Right Extracranial There is intimal thickening but no significant atherosclerotic plaque noted in the right common carotid artery. There is intimal thickening but no significant atherosclerotic plaque noted in the right internal carotid artery. There is intimal thickening but no significant atherosclerotic plaque noted in the right external carotid artery. Antegrade flow is noted in the right vertebral artery. Left Extracranial There is intimal thickening but no significant atherosclerotic plaque noted in the left common carotid artery. There is intimal thickening but no significant atherosclerotic plaque noted in the left internal carotid artery. There is intimal thickening but no significant atherosclerotic plaque noted in the left external carotid artery. Antegrade flow is noted in the left vertebral artery. Procedure Carotid Duplex [id number]. The exam was diagnostic. Exam performed in department. Interpretation Summary No significant atherosclerotic plaque or stenosis noted in the internal carotid arteries bilaterally. Flow within the vertebral arteries is antegrade bilaterally. Ordering Physician: Naveen Nava Performed By: Earl Wells RVT
== END | disposition home or self-care (01) ==
LOC: CT 15:04
PROVIDERS: PCP Family Medicine; Visit Provider Family Medicine
DX: I67.5 Moyamoya disease (principal)
CPT/HCPCS: 70450; 93880

== ENCOUNTER 2020-01-01 11:00 | Outpatient (RCR) | payer OTHER, MEDICAID, SELFPAY ==
--- NOTE | 2019-09-20 13:53 | HP.PTEVAL ---
Patient's Visit Information GORDO ABERNATHY is a 49 year old F referred to Physical Therapy by Dr. Naveen Nava MD with a diagnosis of Balance issues H/o R forefoot amputation, Poor control Type II DM, h/o CVA. Date of Evaluation: 09/20/19 Physical Therapist: ROSALEE Jamil - Visit Plan Frequency: 2x /Week Duration: 6 Weeks Plan: Test pt on the NeuroCOm and treat deficites as needed. Work on functional strengthening such as stairs and balance, both static and dynamic, LE strength, with HEP. - Subjective Pt had her R forefoot ampuation Oct 02, 2015 due to Blood clot in her foot. She had 3 blockages in each leg and a blood clot heading to her intestines. She also had a stroke inbetween all of those 3 surgeries. She has had 4 strokes and a brain surgery and multiple TIA's. She had a woulnd vac and geovany and was at the wound center. Pt has really bad balance issues and fallen 4X since Mar and 3X she has hit her head. She is sure that she had a concussion. She was going up stairs with a client and had nothing to hold onto and then she fell backwards down the stairs. She is currently not at home... so she does not have stairs. She has trouble up and down the stairs. She has no trouble getting up from a chair. She might have trouble getting off a computer chair. She is currently not working. Her brother wants her to type with all 5 fingers and she is not sure she can so she has an OT appointment next week. She has no weakness. She reports that she can get dizzy when standing up or upon exertion. - Objective Gait: walks with decrease stance time on the R LE, R heel whip as can not push off, slightly increase stance with gait, some increase veering. LE MMT: R Hip flex 4-/5, L hip flex 4+/5, B knee ext 4+/5, knee flex R 4/5, L 4-/5, B abd 3+/5, B hip ext 3+/5. Tight R gastroc. Stairs: has poor eccentric control descending the stairs. Able to go up and down recip with 2 hand rails. Pt is able to step over an object on the floor but needs UE support to do so. FGA: 02/06. Sit to stand: able to get upout of a chair without the use of her UE's but she stumbled FW to catch her balance. Pt's L leg began to hurt after doing the FGA and going up and down the stairs and she needed to rest so endurance is an isseue VS PVD in that L leg? Pt struggled to roll from supine to prone but easy to roll side to side. - Balance Scores Functional Gait Assessment Score: 12 % Disability: 60.0000 - Goals Goal 1:: I HEP Goal 2:: Be able to go up and down the stairs with 1 railing with more control and not LOB with SBA Goal Time Frame: 4-6 Weeks Goal 3:: Increase LE strength by 1/2 muscle grade (at time of the eval: LE MMT: R Hip flex 4-/5, L hip flex 4+/5, B knee ext 4+/5, knee flex R 4/5, L 4-/5, B abd 3+/5, B hip ext 3+/5). Goal Time Frame: 4-6 Weeks Goal 4:: Test Pt on the Neurocom Goal Time Frame: 2 Weeks Goal 5:: Increase FGA by 5 points to decrease fall risk. Goal Time Frame: 4-6 Weeks - Rehabilitation Potential Rehabilitation Potential: Fair - Anticipated Interventions Patient/Client Instruction: Educate patient on: Condition, Plan of Care For the Purpose of:: To increase ROM, To improve muscle performance and motor function, To improve ability to perform ADL's, To increase tolerance to activity/condition/position, To improve performance and independence with ADL's, To decrease level of supervision to perform tasks, To improve ability of physical actions for home/community/work/leisure, To improve gait and locomotor functions, To improve health of tissue, To decrease soft tissue restriction, To increase flexibility/ROM, To improve balance, To improve safety with gait Therapeutic Exercise to Include: Strength training, Balance training, Postural training, Flexibilty training, Gait and locomotor training, via Neurocom Balance Mas, Passive ROM, Active ROM, Dynamic Lumbar Stabilization For the Purpose of:: To improve muscle performance and motor function, To improve ability to perform ADL's, To increase tolerance to activity/condition/position, To improve performance and independence with ADL's, To improve gait and locomotor functions, To improve health of tissue, To decrease soft tissue restriction, To increase flexibility/ROM, To improve balance, To improve safety with gait Functional Training to Include: Gait training For the Purpose of:: To improve gait and locomotor functions, To improve safety with gait Manual Therapy Techniques to Include: Passive ROM For the Purpose of:: To increase ROM Thank you for the opportunity to evaluate your patient. For Medicare and Medicare HMO plans, please review the plan of care and approve it. It will need to be FAXED BACK to us at [phone] for Medicare purposes. For Medicare only, by signing this I certify the plan of care. Please let me know if there are questions or concerns regarding this plan of care. Physician Signature: Date:
--- NOTE | 2019-09-27 13:41 | HP.PTCOM_ITS ---
PT Communication Note 09/27/[address] Naveen Nava MD , Thank you for the referral of Chiquita to [email or web address] for balance assessment. I have enclosed a copy of the results for your review. In summation, she scored poorly, if at all on all parts of the testing. She showed vestibular and visual sensory deficits in her balance. She had a hard time keeping her weight forward to complete the Limits of Stability and Motor Control tests. With these results in mind, I have added to her POC weight shifting, visual and vestibular ex and gait. If there are questions regarding her PT or balacne test, please feel free to call me. Sincerely, JULIO HuynhT, OCS, CSCS Contact Information
--- NOTE | 2019-10-17 15:33 | HP.OTEVAL ---
Patient's Visit Information GORDO ABERNATHY is a 49 year old F, referred to Occupational Therapy by Dr. Naveen Nava MD, with a diagnosis of CVA. Date of Evaluation: 10/17/19 Occupational Therapist: Ursula Saravia, OTR/Richard, CHT - Subjective This 49 year old female was seen for OT eval with dx of difficulty writing- pt states her last CVA was about 4 years ago. pt states she has has difficulty with handwriting/typing for about 10 years following her 3rd CVA. pt states she has not had any new dx in the last 4 years. Pt states her dad and brother noticed difficulty with writing and typing and would like pt to work on her coordinations. Pt states her brother would like her to use all 4 digits on right hand with typing. pt states her coordination/writing has not changed in the last 6 months or year- pt feels her writing hasnt changed in 10 years. - Pain right hand 0 Pain Intensity Range: 7 - ROM ROM Comments: pt demo ROM of wrist/elbow and shoulder WNL. pt demo with the ability to form a gross grasp and release - Strength Stamp Redemption Clerk: right 25# left 25# Lateral Pinch: right 12# left 12# Tripod Pinch: right 10# left 8# - Sensation Thumb: right 2.83 left 2.83 Index: right 2.83 left 2.83 Middle: right 2.83 left 2.83 Ring: right 2.83 left 2.83 Little: right 2.83 left 2.83 - Nine Hole Peg Right: 42.36 Left: 32.22 Comments: pt has had CVA that affected both right and left sides - In-Hand Manipulation Finger to Palm Translation: Mild - Right, Normal - Left Palm to Finger Translation: Mild - Right, Mild - Left - Quick DASH-Disab of Arm,Shoulder& Hand Quick DASH Score: 45.4525 - Goals Goal:: pt will demo the ability to write name in 10 sec. or less to increase speed of writing by d.c. pt will demo the ability to type 3 sentences with no more than three corrections by d/c. pt will demo a reduction in 9-hole peg testing time by 3 sec. demo a increase in FM speed by d.c - Rehabilitation General Assessment: pt demo with a compensitory writing yulia. that increases time to write name and sentances- this may contribute to pain in her hand. pt would benefit from skilled OT services 1-2x week for 3 weeks Rehabilitation Potential: Questionable - Anticipated Interventions Fine Motor Coord/Jayden, Neuro Reeducation, Education re assistive Equipment, Education re Diagnosis, Home Program - Visit Plan Frequency: 1-2x /Week Duration: 3 Weeks TEXT: Thank you for the opportunity to evaluate your patient. For Medicare and Medicare HMO plans, please review the plan of care and approve it. It will need to be FAXED BACK to us at [phone] for Medicare purposes. Please let me know if there are questions or concerns regarding this plan of care. Physician Signature: Date:
--- NOTE | 2019-11-27 11:09 | HP.PTREVAL_ITS ---
Dr. Naveen Nava MD, It has been my pleasure to treat GORDO ABERNATHY over the last 7 visits for Balance issues H/o R forefoot amputation, Poor control Type II DM, h/o CVA. Please see the progress note below for an update on the physical therapy plan of care! Subjective: Pt reports that she failed her balance test and she has a new boyfriend now that wants to help her too much. Pt has a cane but does not use it. She has not fallen. She went up and down stairs on Wednesday and she did just fine with a railing. Pt reports that she needs more PT. She admits that she did skip some but will attend them from now on. She feels that her balance is poor and she feels that if she is at an unfamiliar place she feels uneven with possible of falling. The place she had this weekend had a lot of extension cords and were able to step over them. Objective/Function: Stairs: up and down recip with 1 hand rail with no eccentr ic control descending.. weakness demonstrated on the R LE. LE MMT: R Hip flex 4-/5, L hip flex 4/5, B knee ext 4+/5, knee flex R 4/5, L 4-/5, B abd 3+/5, B hip ext 3+/5. FGA: 11 Plan Plan: Pt knows that consistency is the brice at this point. Work on functional strengthening such as stairs and balance, both static and dynamic, LE strength, with HEP. Work on weight shifts onto the R LE and fw weight shifts Goals Goal 1:: I HEP Goal 2:: Be able to go up and down the stairs with 1 railing with more control and not LOB with SBA Goal Time Frame: 4-6 Weeks Goal Progress: Progressing Goal 3:: Increase LE strength by 1/2 muscle grade (at time of the eval: LE MMT: R Hip flex 4-/5, L hip flex 4+/5, B knee ext 4+/5, knee flex R 4/5, L 4-/5, B abd 3+/5, B hip ext 3+/5). Goal Time Frame: 4-6 Weeks Goal 4:: Test Pt on the Neurocom Goal Time Frame: 2 Weeks Goal Progress: Goal Met Goal 5:: Increase FGA by 5 points to decrease fall risk. Goal Time Frame: 4-6 Weeks Goal 6:: Stadn with weight equally distributed wetween both feet to decrease pain L foot. Goal Time Frame: 4-6 Weeks Goal Progress: NEW GOAL Anticipated Interventions Patient/Client Instruction: Educate patient on: Condition, Plan of Care For the Purpose of:: To increase ROM, To improve muscle performance and motor function, To improve ability to perform ADL's, To increase tolerance to activity/condition/position, To improve performance and independence with ADL's, To decrease level of supervision to perform tasks, To improve ability of physical actions for home/community/work/leisure, To improve gait and locomotor functions, To improve health of tissue, To decrease soft tissue restriction, To increase flexibility/ROM, To improve balance, To improve safety with gait Therapeutic Exercise to Include: Strength training, Balance training, Postural training, Flexibilty training, Gait and locomotor training, via Neurocom Balanc e Mas, Passive ROM, Active ROM, Dynamic Lumbar Stabilization For the Purpose of:: To improve muscle performance and motor function, To improve ability to perform ADL's, To increase tolerance to activity/condition/position, To improve performance and independence with ADL's, To improve gait and locomotor functions, To improve health of tissue, To decrease soft tissue restriction, To increase flexibility/ROM, To improve balance, To improve safety with gait Functional Training to Include: Gait training For the Purpose of:: To improve gait and locomotor functions, To improve safety with gait Manual Therapy Techniques to Include: Passive ROM For the Purpose of:: To increase ROM Please do not hesitate to contact me at [phone] by phone or if you have questions or concerns regarding this new plan of care! Sincerely, Mya Coulter, MPT
--- NOTE | 2019-12-13 11:30 | HP.OTDCSUM ---
It has been my pleasure to treat GORDO ABERNATHY under orders from Dr. Naveen Nava MD, for the diagnosis of CVA for a total of 7 visit(s). Please see the following information for a summary of their discharge status. % Improvement: 20 Objective/Function: pt has been seen for 7 OT visits since her initial eval on 10/17/19. 9-hole peg test right initial was 42.36 current 34.83,. left was 32.22 current was 29.48. pt challenged with writing of name first and last name in 24sec. legibly. Patient Goals: Decrease Pain, Improve Fine Motor Skills, Use Hand/Wrist/Arm Normally Again Goal:: pt will demo the ability to write name in 10 sec. or less to increase speed of writing by d.c. pt will demo the ability to type 3 sentences with no more than three corrections by d/c. pt will demo a reduction in 9-hole peg testing time by 3 sec. demo a increase in FM speed by d.c Plan: Give a theraband HEP Discharge Comments: pt was seen for 7 OT visits from initial eval on 10-17-19. pt was ed. in fine motor HEP to continue to challenged her fine motor skills. pt also ed. on ad. writing pens, use of placing towel down to increase pinch with small pills. pt demo understanding and agree to cont. with HEP. If there are questions or concerns regarding this patient's occupational therapy, please fell free to call me at [phone]. Thank you for the referral of this patient. Sincerely, Ursula Saravia, OTR/L, CHT
--- NOTE | 2020-01-01 11:34 | HP.PTDCSUM ---
It has been my pleasure to treat GOROD ABERNATHY referred by Dr. Naveen Nava MD, with the diagnosis of Balance issues H/o R forefoot amputation, Poor control Type II DM, h/o CVA for a total of 14 visit(s). Discharge Date: 01/01/20 Please see the following information for a summary of their discharge status. Subjective: Pt has no fallen but once and she tripped on a vent that was sticking up. She feels that her balance has improved 50%. She is trying to use her R leg more. She has not gone up and down the stairs that much. L ankle pain Pain Intensity (Out of 10): 2 % Improvement: 50 Objective/Function: FGA: 13. LE MMT: R Hip flex 4/5, L hip flex 4+/5, B knee ext 4+/5, knee flex R 4/5, L 4-/5, B abd 4/5, B hip ext 3+/5). Pt is putting more weight through her R LE but still favors L more Goal 1:: I HEP Goal Progress: Goal Met Goal 2:: Be able to go up and down the stairs with 1 railing with more control and not LOB with SBA Goal Progress: Goal Met Goal 3:: Increase LE strength by 1/2 muscle grade (at time of the eval: LE MMT: R Hip flex 4-/5, L hip flex 4+/5, B knee ext 4+/5, knee flex R 4/5, L 4-/5, B abd 3+/5, B hip ext 3+/5). Goal Progress: Goal Met Goal 4:: Test Pt on the Neurocom Goal Progress: Goal Met Goal 5:: Increase FGA by 5 points to decrease fall risk. Goal Progress: Progressing Goal 6:: Stadn with weight equally distributed wetween both feet to decrease pain L foot. Goal Progress: Progressing Plan: Work on functional strengthening such as stairs and balance, both static and dynamic, LE strength, with HEP. Work on weight shifts onto the R LE and fw weight shifts Discharge Comments: DC PT to HEP If there are questions or concerns regarding this patient's physical therapy, please feel free to call me at [phone]. Thank you for the referral of this patient. Sincerely, Mya Coulter, MPT
== END 2020-01-01 19:00 | disposition home or self-care (01) ==
LOC: PT 11:00
PROVIDERS: PCP Family Medicine; Referring Provider Family Medicine; Visit Provider Family Medicine
DX: R26.9 Unspecified abnormalities of gait and mobility (principal); Z86.73 Personal history of transient ischemic attack (TIA), and cerebral infarction without residual deficits
CPT/HCPCS: 97110; 97162; 97166; 97530; 97750

== ENCOUNTER 2020-01-08 11:09 | Emergency (ER) | payer MEDICAID, SELFPAY ==
[2020-01-08 11:14] VITALS: BP 169/109; PULSE 116; RESP 18; TEMP 36.6; O2SAT 96; BMI 30.4
--- NOTE | 2020-01-08 11:30 | ED.VIS.GEN ---
History of Present Illness Chief Complaint: Cough Informant: Patient Narrative: 49-year-old female states that her boyfriend received a positive Covid test last night. She states the past several days she has had runny nose cough body aches and a loss of smell. She states that she is at [address] and had to sleep at a hotel last night. She states she needs a Covid test. - Past Medical History (1) Atrial fibrillation Status: Chronic (2) Carotid artery disease Status: Chronic (3) Depression Status: Chronic (4) Hyperlipidemia Status: Chronic (5) Freedman freedman disease Status: Chronic (6) Thromboembolism Status: Chronic (7) Type 2 diabetes mellitus Status: Chronic Past Medical History - Allergies and Home Meds Allergies/Adverse Reactions: Allergies mirtazapine [From Remeron] Allergy (Unknown, Verified 01/08/20 11:13) Unknown sulfamethoxazole [From Bactrim] Allergy (Unknown, Verified 01/08/20 11:13) Unknown trimethoprim [From Bactrim] Allergy (Unknown, Verified 01/08/20 11:13) Unknown adhesive Allergy (Verified 01/08/20 11:13) Rash metformin Adverse Reaction (Intermediate, Verified 01/08/20 11:13) Diarrhea codeine Adverse Reaction (Verified 01/08/20 11:13) Upset Stomach heparin Adverse Reaction (Verified 01/08/20 11:13) Low platelets low-ogestrel Allergy (Unknown, Uncoded 01/08/20 11:13) Unknown Primary Care Physician: Naveen Nava MD [Primary Care Provider] - As Needed Prior records reviewed: Yes Surgical History: appendectomy, - Lives: - - Currently resides at [address] Smoking Status: Never smoker - Family History Maternal Family History: Reports: No pertinent history, - - The patient's mother is , with a history of hypertension, hyperlipidemia, thyroid disease, and infantile aortic disease. Paternal Family History: Reports: No pertinent history, - - Patient's father 78 years of age and suffers from diabetes mellitus. Review of Systems General: Reports: Chills, Malaise. Denies: Fever, Sweats Eyes: Denies: Visual changes - bilaterally, Diplopia ENT: Reports: Rhinorrhea, - - Loss of smell. Denies: Sore throat Cardiovascular: Denies: Chest pain, Palpitations Respiratory: Reports: Cough. Denies: Dyspnea, Dyspnea on exertion Gastrointestinal: Denies: Abdominal pain, Nausea, Vomiting, Diarrhea, Melena, Hematochezia Genitourinary: Denies: Dysuria, Hematuria, Frequency Musculoskeletal: Reports: Myalgias. Denies: Back pain, Extremity Pain Skin: Denies: Rash, Wounds Neurological: Denies: Headache, Weakness, Numbness Physical Exam Vital Signs/Narrative: Vital Signs Temp Pulse Resp BP Pulse Ox 01/08/20 11:14 98 F 116 H 18 169/109 H 96 Inital Vital Signs reviewed: Yes General: Well nourished, Well developed, No Acute Distress Head: Normocephalic, Atraumatic Eyes: Perrl, EOMI ENT: Moist mucous membranes, No rhinorrhea Neck: Supple, Nontender Cardiovascular: Regular rate, Regular rhythm, No murmurs Respiratory: No distress, CTA bilaterally, Chest nontender Abdomen: Soft, Nontender, Nondistended, Normal bowel sounds Back: Nontender, Normal Inspection Extremities: Nontender, No edema Skin: Normal color, No rash Neurological: Alert, Oriented x3, Cranial nerves II-XII grossly intact, Normal Strength, Normal Sensation Psychological: Normal affect, Normal Mood Diagnostic/Tx/Re-eval - Medical Decision Making Patient is Covid positive. She appears clinically stable. Patient to self isolate. Return if worsening or concerns ED Disposition - Plan for ED Patient: Disposition: Home or Assisted Living Diagnosis: COVID-19 Instructions: Coronavirus Disease 2019 (COVID-19): Overview Referrals: Naveen Nava MD [Primary Care Provider] - As Needed
--- NOTE | 2020-01-08 12:30 | ED.RN ---
PT NOTIFIED COVID +
== END 2020-01-08 12:02 | disposition home or self-care (01) ==
LOC: ED 11:55
PROVIDERS: Emergency Provider Emergency Medicine; PCP Family Medicine
DX: U07.1 COVID-19 (principal); E11.9 Type 2 diabetes mellitus without complications; E78.5 Hyperlipidemia, unspecified; I25.10 Atherosclerotic heart disease of native coronary artery without angina pectoris
CPT/HCPCS: 87426; 99281

== ENCOUNTER 2020-01-24 21:06 | Emergency (ER) | payer MEDICAID, SELFPAY ==
[2020-01-24 21:06] VITALS: BP 169/106; PULSE 90; RESP 16; TEMP 35.8; O2SAT 95
[2020-01-24 21:16] VITALS: BP 138/93
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
[2020-01-24] MEDS: Diphth,Pertuss(Acell),Tet Vac 0.5 ML Vial IM (21:51)
[2020-01-24] MEDS: BACITRACIN 15 GM Tube 1 APPLIC TOPICAL (21:53)
[2020-01-24 22:33] VITALS: RESP 16
== END 2020-01-24 23:38 | disposition home or self-care (01) ==
LOC: ED 22:13
PROVIDERS: Emergency Provider Emergency Medicine; PCP Family Medicine
DX: S00.31XA Abrasion of nose, initial encounter (principal); S00.511A Abrasion of lip, initial encounter; Z23 Encounter for immunization; E11.9 Type 2 diabetes mellitus without complications; I10 Essential (primary) hypertension; Z86.73 Personal history of transient ischemic attack (TIA), and cerebral infarction without residual deficits; V49.49XA Driver injured in collision with other motor vehicles in traffic accident, initial encounter; Y93.I9 Activity, other involving external motion; Y92.410 Unspecified street and highway as the place of occurrence of the external cause; Y99.8 Other external cause status
CPT/HCPCS: 90471; 90715; 99284